=== PATIENT | male | born 1950 ===

== ENCOUNTER 2020-10-24 06:30 | Day surgery (SDC) | payer MEDICARE, OTHER ==
[~2020-10-24 06:30] MED LIST: Lactated Ringers 1,000 ML IV SCH; Sodium Chloride 0.9% 10 ML SDV IV PRN; Sodium Chloride 0.9% 10 ML Syringe FLUSH PRN; Sodium Chloride 0.9% 2.5 ML Syringe FLUSH PRN; ceFAZolin 1 GM Vial IV ONE
[2020-10-24] MEDS ORDERED: Rocuronium Bromide 50 MG/5 ML Syringe ONE (07:14)
[2020-10-24] MEDS ORDERED: Ondansetron 4 MG/2 ML SDV ONE (07:14)
[2020-10-24] MEDS ORDERED: Midazolam 1 MG/ML 2 ML SDV ONE (07:15)
[2020-10-24] MEDS ORDERED: fentaNYL 100 MCG/2 ML SDV ONE (07:15)
[2020-10-24] MEDS ORDERED: Propofol 200 MG/20 ML SDV ONE (07:15)
[2020-10-24] MEDS ORDERED: Iopamidol 408 MG/ML 20 ML SDV ONE (07:20)
--- NOTE | 2020-10-24 07:38 | PCM.PREANE ---
Preanesthetic Assessment - Anesthesia/Transfusion/Family Hx Anesthesia History: Prior Anesthesia Without Reaction Family History of Anesthesia Reaction: No Transfusion History: No Prior Transfusion(s) Intubation History: Unknown - Review of Systems General: No Symptoms Pulmonary: No Symptoms Cardiovascular: No Symptoms Gastrointestinal: No Symptoms Neurological: No Symptoms Other: Reports: None - Physical Assessment Vital Signs: Last Vital Signs Temp 36.1 C 10/24/20 06:45 Pulse 75 10/24/20 06:45 Resp 16 10/24/20 06:45 BP 137/78 10/24/20 06:45 Pulse Ox 94 L 10/24/20 06:45 Height: 5 ft 6 in Weight: 81.193 kg ASA Class: 3 Mental Status: Alert & Oriented x3 Airway Class: Mallampati = 2 Dentition: Reports: Normal Dentition Thyro-Mental Finger Breadths: 2 Mouth Opening Finger Breadths: 2 ROM/Head Extension: Limited/Partial Lungs: Clear to Auscultation, Normal Respiratory Effort Cardiovascular: Regular Rate, Regular Rhythm - Allergies Allergies/Adverse Reactions: Allergies Allergy/AdvReac Type Severity Reaction Status Date / Time Bsscsro-Tow-Hay Reductase Allergy Itching Verified 10/18/20 10:06 Inhibitor - Blood Blood Available: No - Anesthesia Plan Pre-Op Medication Ordered: None - Acknowledgements Anesthesia Type Planned: General Anesthesia Pt an Appropriate Candidate for the Planned Anesthesia: Yes Alternatives and Risks of Anesthesia Discussed w Pt/Guardian: Yes Pt/Guardian Understands and Agrees with Anesthesia Plan: Yes PreAnesthesia Questionnaire HEENT History: Reports: Other (See Below) Other HEENT History: wears glasses Cardiovascular History: Reports: High Cholesterol, Hypertension Respiratory History: Reports: Other (See Below) Other Respiratory History: diagnosed with sleep apnea in the past, does not use CPAP, was treated for COVID in early Aug, in [place] Gastrointestinal History: Reports: GERD Genitourinary History: Reports: Renal Calculus Musculoskeletal History: Reports: Arthritis, Fracture Other Musculoskeletal History: hx fx arms Neurological History: Reports: CVA Other Neuro History: states had "mild stroke" approx 15 years ago, had carotid artery angiogram with no stents placed. Stroke symptoms were terrible headache a nd one side face drop Psychiatric History: Reports: None Endocrine/Metabolic History: Reports: Diabetes, Type II Hematologic History: Reports: None Immunologic History: Reports: None Oncologic (Cancer) History: Reports: None Dermatologic History: Reports: None - Past Surgical History Head Surgeries/Procedures: Reports: None HEENT Surgical History: Reports: None Cardiovascular Surgical History: Reports: Other (See Below) Other Cardiovascular Surgeries/Procedures: hx carotid artery angioplasty Respiratory Surgical History: Reports: None GI Surgical History: Reports: Cholecystectomy, Colonoscopy, EGD Male Surgical History: Reports: Other (See Below) Other Male Surgeries/Procedures: hx ureteroscopy with stone removal Endocrine Surgical History: Reports: None Neurological Surgical History: Reports: None Musculoskeletal Surgical History: Reports: None Oncologic Surgical History: Reports: None Dermatological Surgical History: Reports: None - SUBSTANCE USE Tobacco Use Within Last Twelve Months: Smokeless Tobacco - HOME MEDS Home Medications: Home Meds Aspirin [Adult Aspirin Regimen] 81 mg PO DAILY 10/18/20 [History] Ezetimibe 10 mg PO DAILY 10/18/20 [History] Glimepiride 1 mg PO BID 10/18/20 [History] Olmesartan/Hydrochlorothiazide [Olmesartan-Hctz 40-12.5 mg Tab] 1 tab PO DAILY 10/18/20 [History] atorvaSTATin Calcium [Atorvastatin Calcium] 40 mg PO DAILY 10/18/20 [History] icosapent ethyL [Icosapent Ethyl] 2 tab PO BIDMEALS 10/18/20 [History] metFORMIN HCl [Metformin HCl] 500 mg PO BID 10/18/20 [History] - CURRENT (IN HOUSE) MEDS Current Meds: Current Medications Lactated Ringer's (Ringers, Lactated) 1,000 mls @ 100 mls/hr IV ASDIRECTED SUSI Last Admin: 10/24/20 07:13 Dose: 100 mls/hr Documented by: Sodium Chloride (Saline Flush) 10 ml FLUSH ASDIRECTED PRN PRN Reason: Keep Vein Open Sodium Chloride (Saline Flush) 2.5 ml FLUSH ASDIRECTED PRN PRN Reason: Keep Vein Open Sodium Chloride (Normal Saline) 10 ml IV ASDIRECTED PRN PRN Reason: IV Use Discontinued Medications Cefazolin Sodium (Ancef) 1 gm IV ONCALL ONE Stop: 10/24/20 00:06 Fentanyl (Sublimaze) Confirm Administered Dose 100 mcg .ROUTE .STK-MED ONE Stop: 10/24/20 07:16 Iopamidol (Isovue-M 200 (41%)) Confirm Administered Dose 40 ml .ROUTE .STK-MED ONE Stop: 10/24/20 07:21 Lidocaine HCl (Xylocaine-Mpf 1%) Confirm Administered Dose 5 ml .ROUTE .STK-MED ONE Stop: 10/24/20 07:15 Midazolam HCl (Versed 1 Mg/Ml) Confirm Administered Dose 2 mg .ROUTE .STK-MED ONE Stop: 10/24/20 07:16 Ondansetron HCl (Zofran) Confirm Administered Dose 4 mg .ROUTE .STK-MED ONE Stop: 10/24/20 07:15 Propofol (Diprivan 20 Ml) Confirm Administered Dose 200 mg .ROUTE .STK-MED ONE Stop: 10/24/20 07:16 Rocuronium Grover (Rocuronium Grover) Confirm Administered Dose 50 mg .ROUTE .STK-MED ONE Stop: 10/24/20 07:15
[2020-10-24] MEDS ORDERED: ePHEDrine 50 MG/ML SDV ONE (08:40)
[2020-10-24] MEDS ORDERED: Glycopyrrolate 0.2 MG/ML SDV ONE (09:09)
--- NOTE | 2020-10-24 10:00 | PCM.POSTAN ---
POST ANESTHESIA ASSESSMENT - MENTAL STATUS Mental Status: Alert, Oriented - VITAL SIGNS Vital Signs: Last Vital Signs Temp 36.1 C 10/24/20 06:45 Pulse 64 10/24/20 09:53 Resp 15 10/24/20 09:53 BP 106/68 10/24/20 09:53 Pulse Ox 93 L 10/24/20 09:53 - RESPIRATORY Respiratory Status: Respiratory Rate WNL, Airway Patent, O2 Saturation Stable - CARDIOVASCULAR CV Status: Pulse Rate WNL, Blood Pressure Stable - GASTROINTESTINAL GI Status: No Symptoms - PAIN Pain Score: 0 - POST OP HYDRATION Hydration Status: Adequate & Stable - OBSERVATIONS Free Text/Narrative:: No anesthesia problems
--- NOTE | 2020-10-24 11:30 | PCM48HPAN ---
Post Anesthesia Note - EVALUATION WITHIN 48HRS OF ANESTHETIC Vital Signs in Normal Range: Yes Patient Participated in Evaluation: Yes Respiratory Function Stable: Yes Airway Patent: Yes Cardiovascular Function Stable: Yes Hydration Status Stable: Yes Pain Control Satisfactory: Yes Nausea and Vomiting Control Satisfactory: Yes Mental Status Recovered: Yes Vital Signs: Last Vital Signs Temp 36.3 C 10/24/20 09:55 Pulse 61 10/24/20 10:50 Resp 16 10/24/20 10:50 BP 136/67 10/24/20 10:50 Pulse Ox 94 L 10/24/20 10:50 - COMMENTS/OBSERVATIONS Free Text/Narrative:: No anesthesia problems
--- NOTE | 2020-10-24 11:40 | OR ---
SURGEON: Michael Ty M.D. DATE OF PROCEDURE: 10/24/2020 PREOPERATIVE DIAGNOSIS: 1.4 cm left renal pelvis stone. POSTOPERATIVE DIAGNOSIS: 1.4 cm left renal pelvis stone. OPERATION: Extracorporeal shock wave lithotripsy and cystoscopy with double-J stent placement. DESCRIPTION OF PROCEDURE: The patient was given general anesthesia. He was on lithotripsy table. Position of the patient was adjusted, so the stone could be treated and eventually received 2500 shocks. At the end of the treatment, it appeared that the stone broke to a satisfactory degree. At that point, the patient was placed in dorsal lithotomy position, prepped and draped in sterile drapes. The 22- Moldovan cystoscope was introduced in the bladder without difficulty. The guidewire was advanced in the left ureter all the way up into the renal pelvis over which a 6-Moldovan 26 cm double-J stent was placed. Position was confirmed on fluoroscopy. The bladder was emptied. The string at the end of the stent was taped to the outside of the penis. The patient tolerated the procedure well and was moved to recovery room in good condition. It was noted at the time of cystoscopy that the urine coming out of the left ureter was rather bloody, a little bit more than the usual degree of bleeding that happens with this procedure. So he was given an additional liter of fluid, and we will monitor and see what his urine looks like before he goes home. He will be seen in the office in 1 week to have his double-J stent taken out. LAURENT / EDUARDO /[id number]
== END 2020-10-24 11:30 | disposition home or self-care (01) ==
LOC: MW.SDS 06:30
PROVIDERS: ATTEND Urology
DX: N20.0 Calculus of kidney (principal); E11.9 Type 2 diabetes mellitus without complications; K21.9 Gastro-esophageal reflux disease without esophagitis; E78.00 Pure hypercholesterolemia, unspecified; E78.1 Pure hyperglyceridemia; I10 Essential (primary) hypertension; G47.30 Sleep apnea, unspecified; F17.290 Nicotine dependence, other tobacco product, uncomplicated; Z88.8 Allergy status to other drugs, medicaments and biological substances; Z79.82 Long term (current) use of aspirin; Z79.84 Long term (current) use of oral hypoglycemic drugs; Z79.899 Other long term (current) drug therapy; Z98.890 Other specified postprocedural states; Z86.73 Personal history of transient ischemic attack (TIA), and cerebral infarction without residual deficits
CPT/HCPCS: 50590; 52332; 82962; J0690; J2001; J2250; J2405; J2704; J3010; J3490; J7120; Q9966